=== PATIENT | male | born 1950 | race African-American/Black ===

== ENCOUNTER 2017-02-07 08:40 | Day surgery (SDC) | payer OTHER ==
[2017-02-03 12:01] VITALS: BMI 25.9
[2017-02-07] MEDS ORDERED: PROPOFOL 20 ML ONE ×2 (09:40)
[2017-02-07 11:26] VITALS: TEMP 97.5
[2017-02-07 11:57] VITALS: BP 118/74; PULSE 52
== END 2017-02-07 12:00 | disposition home or self-care (01) ==
LOC: FASU-ENDO 08:40
PROVIDERS: ATTEND Internal Medicine Gastroenterology
PROC: 0DJD8ZZ Inspection of Lower Intestinal Tract, Via Natural or Artificial Opening Endoscopic (ICD-10-PCS; principal; 2017-02-07 10:40)
DX: Z86.010 Personal history of colon polyps (principal); Z80.0 Family history of malignant neoplasm of digestive organs; Z83.71 Family history of colonic polyps